=== PATIENT | male | born 1950 | race Caucasian/White ===

== ENCOUNTER 2023-08-21 07:10 | Day surgery (SDC) | payer MEDICARE ==
[2023-08-15 15:49] LABS: EOSINOPHILS # (AUTO) 0.1 X10'3 (0-0.9); MONOCYTES # (AUTO) 0.5 X10'3 (0-0.9); PRE OP WHITE BLOOD COUNT 5.7 10'3 (4.8-10.8)
[2023-08-15 15:51] LABS: BASOPHILS # (AUTO) 0.1 X10'3 (0-0.2); BASOPHILS % (AUTO) 1.2 % (0-1); EOSINOPHILS % (AUTO) 1.2 % (0-6); LYMPHOCYTES # (AUTO) 2.5 X10'3 (1.1-4.8); MEAN CORPUSCULAR HEMOGLOBIN 32.7 PG (27.0-31.0); MEAN CORPUSCULAR HGB CONC 33.2 g/dL (33.0-36.5); MEAN CORPUSCULAR VOLUME 98.4 FL (78-98); MEAN PLATELET VOLUME 7.6 FL (7.4-10.4); NEUTROPHILS # (AUTO) 2.5 X10'3 (1.8-7.7); NEUTROPHILS % (AUTO) 44.6 % (42-75); PRE OP HEMATOCRIT 42.7 % (42.0-52.0); PRE OP HEMOGLOBIN 14.2 g/dL (14.0-17.9); PRE OP PLATELET COUNT 288 X10'3 (140-440); RED BLOOD COUNT 4.34 X10'6 (4.70-6.10)
[2023-08-15 16:03] LABS: ALBUMIN 3.6 G/DL (3.4-5.0); ALBUMIN/GLOBULIN RATIO 1.1 (1.1-1.5); ALKALINE PHOSPHATASE 58 IU/L (46-116); BLOOD UREA NITROGEN 11 MG/DL (7-18); BUN/CREATININE RATIO 15.7 (10.0-20.0); CALCIUM 8.6 MG/DL (8.5-10.1); CHLORIDE 104 MMOL/L (99-107); PRE OP ALT 46 U/L (30-65); PRE OP ANION GAP 6 (8-16); PRE OP AST 26 U/L (10-37); PRE OP BILIRUB, TOTAL 0.4 MG/DL (0.0-1.0); PRE OP GLUCOSE 78 MG/DL (70-104); PRE OP POTASSIUM 4.1 MMOL/L (3.4-5.1); PRE OP SODIUM 138 MMOL/L (135-145); TOTAL CARBON DIOXIDE 28.2 MMOL/L (24-32); TOTAL PROTEIN 6.9 G/DL (6.4-8.2); eGFR > 90 ML/MIN
[2023-08-15 16:19] LABS: PLATELET ESTIMATE NORMAL; TOTAL CELLS COUNTED 100
[2023-08-15 16:20] LABS: SMUDGE CELLS FEW
[~2023-08-21] VITALS: Ht 162.6 cm; Wt 54.6 kg
[2023-08-21] MEDS: cefazolin 2gm/D5W 100mL 100 ML IV ONE (05:30)
[~2023-08-21 07:10] MED LIST: DENO60DI SUBCUT; DORZ10DR10; FLO0.4C; LISI10TA27 PO; MIRT-142 PO; XAL0.005OS OP
[2023-08-21 07:45] VITALS: BP 127/77; PULSE 61; RESP 16; TEMP 97.7; TEMP 97.9; O2SAT 61; O2SAT 97
[2023-08-21] MEDS: ringers solution, lacted 1,000 ML IV SCH (08:27)
[2023-08-21] MEDS: famotidine 20mg tablet PO ONE (08:27)
[2023-08-21] MEDS ORDERED: midazolam 1 mg/ML 2ml injection ONE (09:20)
[2023-08-21] MEDS ORDERED: fentaNYL/PF 50MCG/1 ML 2ML syringe ONE (09:20)
[2023-08-21] MEDS: LIDOcaine 2% (20mg/ml) 5ml vial ONE (09:49)
[2023-08-21] MEDS: BUPIVAcaine/PF 2.5mg/ml (0.25%) 10ml vial ONE (09:49)
[2023-08-21 10:08] VITALS: BP 90/65; PULSE 59; RESP 16; O2SAT 98
[2023-08-21 10:20] VITALS: BP 110/71; PULSE 50; RESP 10; O2SAT 96
[2023-08-21 10:30] VITALS: BP 105/70; PULSE 51; RESP 11; O2SAT 97
[2023-08-21 10:37] VITALS: BP 126/76; PULSE 55; RESP 14; O2SAT 98
== END 2023-08-21 10:57 | disposition home or self-care (01) ==
LOC: PAS 07:10
PROVIDERS: ATTEND Orthopaedic Surgery Hand Surgery
DX: G56.01 Carpal tunnel syndrome, right upper limb (principal); I10 Essential (primary) hypertension; M81.0 Age-related osteoporosis without current pathological fracture; H40.9 Unspecified glaucoma; Z87.891 Personal history of nicotine dependence; Z79.891 Long term (current) use of opiate analgesic; Z79.899 Other long term (current) drug therapy; Z98.890 Other specified postprocedural states
CPT/HCPCS: 36415; 64721; 80053; 82948; 85025; 93005; A4215; A6449; J0690; J2001; J2250; J3010; J3490; J7030; J7120; Z7506; Z7512; Z7610; 85007

== ENCOUNTER 2023-10-09 05:47 | Day surgery (SDC) | payer MEDICARE ==
[2023-10-02 10:49] LABS: BASOPHILS % (AUTO) 0.7 % (0-1); EOSINOPHILS # (AUTO) 0.1 X10'3 (0-0.9); EOSINOPHILS % (AUTO) 1.7 % (0-6); LYMPHOCYTES # (AUTO) 2.7 X10'3 (1.1-4.8); LYMPHOCYTES % (AUTO) 40.8 % (21-51); MEAN CORPUSCULAR HEMOGLOBIN 33.3 PG (27.0-31.0); MEAN CORPUSCULAR HGB CONC 33.6 g/dL (33.0-36.5); MEAN CORPUSCULAR VOLUME 98.9 FL (78-98); MEAN PLATELET VOLUME 7.3 FL (7.4-10.4); MONOCYTES # (AUTO) 0.5 X10'3 (0-0.9); MONOCYTES % (AUTO) 7.4 % (2-12); NEUTROPHILS # (AUTO) 3.3 X10'3 (1.8-7.7); NEUTROPHILS % (AUTO) 49.4 % (42-75); PRE OP HEMOGLOBIN 14.5 g/dL (14.0-17.9); PRE OP PLATELET COUNT 298 X10'3 (140-440); PRE OP WHITE BLOOD COUNT 6.6 10'3 (4.8-10.8); RED BLOOD COUNT 4.35 X10'6 (4.70-6.10); RED CELL DISTRIBUTION WIDTH 14.5 % (11.5-14.5)
[2023-10-02 11:01] LABS: ALBUMIN 3.7 G/DL (3.4-5.0); ALBUMIN/GLOBULIN RATIO 1.2 (1.1-1.5); ALKALINE PHOSPHATASE 62 IU/L (46-116); BLOOD UREA NITROGEN 15 MG/DL (7-18); BUN/CREATININE RATIO 23.1 (10.0-20.0); CALCIUM 8.8 MG/DL (8.5-10.1); CHLORIDE 104 MMOL/L (99-107); CREATININE 0.65 MG/DL (0.60-1.10); PRE OP ALT 31 U/L (30-65); PRE OP ANION GAP 4 (8-16); PRE OP AST 31 U/L (10-37); PRE OP BILIRUB, TOTAL 0.4 MG/DL (0.0-1.0); PRE OP GLUCOSE 95 MG/DL (70-104); PRE OP POTASSIUM 4.5 MMOL/L (3.4-5.1); PRE OP SODIUM 138 MMOL/L (135-145); TOTAL CARBON DIOXIDE 30.4 MMOL/L (24-32); TOTAL PROTEIN 6.9 G/DL (6.4-8.2); eGFR > 90 ML/MIN
[~2023-10-09] VITALS: Ht 162.6 cm; Wt 54.5 kg
[2023-10-09] VITALS (7 sets, daily range): BP systolic 101–154; BP diastolic 60–90; PULSE 61–65; RESP 10–16; TEMP 98.1; O2SAT 95–98
[~2023-10-09 05:47] MED LIST changes: +B-12; +CALCIUM; +D-3; +GARLIC; +MAGNESIUM; +MULT-1249 PO; +OMEGA 3; +VITAMIN C; +VITAMIN E; +ZINC
[2023-10-09] MEDS: ringers solution, lacted 1,000 ML IV SCH (06:28)
[2023-10-09] MEDS: CLINDAMYCIN 600mg IN NS 50ML 50 ML IV ONE (06:28)
[2023-10-09] MEDS: famotidine 20mg tablet PO ONE (06:28)
[2023-10-09] MEDS ORDERED: LIDOcaine 2% (20mg/ml) 5ml vial ONE ×2 (07:00→07:03)
[2023-10-09] MEDS ORDERED: BUPIVAcaine/PF 2.5mg/ml (0.25%) 10ml vial ONE ×2 (07:01→07:04)
[2023-10-09] MEDS ORDERED: ondansetron/PF 4mg/2ml inj IV PRN (08:05)
[2023-10-09] MEDS ORDERED: morphine 2 MG/ML inj. syringe IV PRN (08:05)
[2023-10-09] MEDS ORDERED: ringers solution, lacted 1,000 ML IV SCH (08:05)
[2023-10-09] MEDS ORDERED: labetalol 20mg/4ml (5mg/ml) syringe IV PRN (08:05)
[2023-10-09] MEDS ORDERED: morphine 4 MG/ML inj SYRINge IV PRN (08:05)
[2023-10-09] MEDS ORDERED: fentaNYL/PF 50MCG/1 ML 2ML syringe ONE (08:10)
[2023-10-09] MEDS ORDERED: midazolam 1 mg/ML 2ml injection ONE (08:10)
[2023-10-09] MEDS ORDERED: propofol 10mg/ml 20ml vial IV ONE (08:44)
[2023-10-09] MEDS: LIDOcaine 2% (20mg/ml) 5ml vial SQ ONE (09:02)
== END 2023-10-09 10:02 | disposition home or self-care (01) ==
LOC: PAS 05:47 → EDUNIT# 09:30 → PAS 10:02
PROVIDERS: ATTEND Orthopaedic Surgery Hand Surgery
DX: G56.02 Carpal tunnel syndrome, left upper limb (principal); I10 Essential (primary) hypertension; H40.9 Unspecified glaucoma; M81.0 Age-related osteoporosis without current pathological fracture; Z87.891 Personal history of nicotine dependence; Z79.899 Other long term (current) drug therapy; Z98.890 Other specified postprocedural states
CPT/HCPCS: 36415; 64721; 80053; 82948; 85025; A4215; A6449; J2001; J2250; J2704; J3010; J3490; J7030; J7120; Z7506; Z7512; Z7610; J0665